=== PATIENT | female | born 1975 | race African-American/Black ===

== ENCOUNTER 2018-02-01 16:45 | Emergency (ER) | payer SELFPAY ==
[~2018-02-01] VITALS: Ht 160 cm; Wt 122.5 kg
[2018-02-01 17:00] VITALS: BP 136/105
== END 2018-02-01 17:56 | disposition left against medical advice (07) ==
LOC: ER 16:49 → EDBD 16:49 → ER 17:56
DX: R03.0 Elevated blood-pressure reading, without diagnosis of hypertension (principal); Z53.21 Procedure and treatment not carried out due to patient leaving prior to being seen by health care provider